=== PATIENT | male | born 1950 | race Caucasian/White ===

== ENCOUNTER → 2024-08-22 10:49 | Outpatient (REF) | payer MEDICARE, OTHER, SELFPAY | LOC: RCS 10:49 | PROVIDERS: ATTENDING PHYSICIAN Internal Medicine Cardiovascular Disease; FAMILY PHYSICIAN Registered Nurse | DX: R00.2 Palpitations (principal); I35.1 Nonrheumatic aortic (valve) insufficiency | CPT/HCPCS: 93306 ==

== ENCOUNTER → 2024-12-30 09:35 | Outpatient (REF) | payer MEDICARE, OTHER, SELFPAY | LOC: SDSPAT 09:35 | PROVIDERS: ATTENDING PHYSICIAN Internal Medicine Cardiovascular Disease; FAMILY PHYSICIAN Internal Medicine; OTHER PHYSICIAN Internal Medicine Cardiovascular Disease | DX: I63.9 Cerebral infarction, unspecified (principal) | CPT/HCPCS: 93005 ==

== ENCOUNTER 2025-01-03 06:23 | Day surgery (SDC) | payer MEDICARE, OTHER, SELFPAY ==
[2024-12-30 09:58] VITALS: BMI 21.8
[2025-01-03 07:52] VITALS: BMI 23.6
--- NOTE | 2025-01-03 07:59 | ITS.CL.IMPLP ---
Outer Diameter Grinder - Implant Loop
Implant Loop
Procedure Report:
Primary Physician: Dr Anastacio Pablo
Primary Grievance And Appeals Specialist: Dr. Carlita Blandon
Procedure Date: 01/03/2025
Procedure: Placement of a loop recorder.
History/Indication:
1. See office H&P for complete history.
2. Patient is a pleasant 74-year-old male with a past medical history significant for hypertension, hyperlipidemia, coronary artery calcifications, aortic valve insufficiency, vasovagal syncope, aortic valve sclerosis, PVCs, and left MCA CVA in
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 Patient on event monitor which demonstrated no evidence of atrial fibrillation as potential cause for stroke. Patient undergo ILR implant due to cryptogenic nature of stroke longitudinal
surveillance for arrhythmia.
Method:
After informed consent was obtained, the patient was brought to the EP laboratory holding area in a fasting, non-sedated state. Peripheral access was established. The left chest was prepared and draped in a sterile fashion. A 'time out' was
called. Local anesthesia was injected in the subcutaneous tissue. The ILR was injected under the skin. Topical skin adhesive was applied. Following the procedure, the patient was taken to the recovery area in stable condition. No complications
were noted.
Device Data:
[employer]; Model# [id number]; Serial# [id number]
Conclusion:
Successful placement of a loop recorder.
Recommendations:
1. Follow-up will be arranged in the [facility] in 7-10 days for wound check.
2. Routine ILR care.
Butch Daniels, , [facility], [facility]
Clinical Cardiac Small Arms Repairer
cc: Dr Anastacio Pablo; Dr. Carlita Blandon
== END 2025-01-03 08:49 | disposition home or self-care (01) ==
LOC: CATH 06:23
PROVIDERS: ATTENDING PHYSICIAN Internal Medicine Cardiovascular Disease; FAMILY PHYSICIAN Internal Medicine; OTHER PHYSICIAN Internal Medicine Cardiovascular Disease
DX: Z09 Encounter for follow-up examination after completed treatment for conditions other than malignant neoplasm (principal); I25.10 Atherosclerotic heart disease of native coronary artery without angina pectoris; I10 Essential (primary) hypertension; E78.5 Hyperlipidemia, unspecified; I35.1 Nonrheumatic aortic (valve) insufficiency; I35.8 Other nonrheumatic aortic valve disorders; I69.351 Hemiplegia and hemiparesis following cerebral infarction affecting right dominant side; R55 Syncope and collapse; Z86.73 Personal history of transient ischemic attack (TIA), and cerebral infarction without residual deficits
CPT/HCPCS: 33285; C1764